=== PATIENT | female | born 1970 | race Hispanic/Latino ===

== ENCOUNTER → 2021-02-21 | Outpatient (CLI) | payer OTHER | END | disposition home or self-care (01) | LOC: OIH 08:19 | PROVIDERS: ATTEND Family Medicine | DX: M17.12 Unilateral primary osteoarthritis, left knee (principal); M47.817 Spondylosis without myelopathy or radiculopathy, lumbosacral region; M85.88 Other specified disorders of bone density and structure, other site; M25.78 Osteophyte, vertebrae | CPT/HCPCS: 72100; 73560 ==

== ENCOUNTER 2021-12-31 15:10 | Emergency (ER) | payer OTHER ==
[~2021-12-31] VITALS: Ht 157.5 cm; Wt 127.0 kg
[2021-12-31 17:39] VITALS: BP 132/83
[2021-12-31] MEDS ORDERED: LIDOP TD (17:56)
[2021-12-31] MEDS ORDERED: CYCL10TA16 PO (17:56)
[2021-12-31] MEDS ORDERED: NAPR-1180 PO (17:56)
[2021-12-31] MEDS ORDERED: ACET-2247 PO (17:56)
[2021-12-31] MEDS ORDERED: HYDROCODONE/ACETAMINOPHEN 10/325 MG TAB PO ONE (18:00)
[2021-12-31] MEDS ORDERED: CYCLOBENZAPRINE HCL 10 MG TABLET PO ONE (18:00)
[2021-12-31] MEDS ORDERED: KETOROLAC 60 MG VIAL (30MG/ML) IM ONE (18:00)
== END 2021-12-31 18:14 | disposition home or self-care (01) ==
LOC: EDH 15:10
DX: M54.50 Low back pain, unspecified (principal); I10 Essential (primary) hypertension; J45.909 Unspecified asthma, uncomplicated; Z79.1 Long term (current) use of non-steroidal anti-inflammatories (NSAID); Z68.43 Body mass index [BMI] 50.0-59.9, adult; E66.01 Morbid (severe) obesity due to excess calories

== ENCOUNTER 2023-02-13 02:15 | Observation (INO) | payer MEDICAID ==
[~2023-02-13] VITALS: Ht 157.5 cm; Wt 142.0 kg
[~2023-02-13 02:15] MED LIST: ACET-2247 PO; CYCL10TA16 PO; LIDOP TD; NAPR-1180 PO
[2023-02-13 02:30] LABS: BASOPHILS % (AUTO) 0.4 % (0.0-5.0); EOSINOPHILS % (AUTO) 3.2 % (0.0-8.0); HEMATOCRIT 42.5 % (36-48); LYMPHOCYTES % (AUTO) 35.7 % (21.0-51.0); MEAN CORPUSCULAR HEMOGLOBIN 31.3 pg (27.0-33.0); MEAN CORPUSCULAR HGB CONC 32.2 g/dL (32.0-36.0); MONOCYTES % (AUTO) 6.7 % (3.0-13.0); NEUTROPHILS % (AUTO) 53.8 % (40.0-77.0); PLATELET COUNT (AUTO) 259 K/uL (130-400); RED BLOOD CELL COUNT(AUTO) 4.38 MIL/uL (4.00-5.50); RED CELL DISTRIBUTION WIDTH 13.2 % (11.0-15.5); WHITE BLOOD COUNT (AUTO) 9.9 K/uL (4.8-10.8)
[2023-02-13] MEDS ORDERED: ASPIRIN 81MG CHEW TAB PO ONE (02:30)
[2023-02-13 02:43] LABS: CREATININE 0.7 mg/dL (0.5-1.5); POTASSIUM 4.2 mmol/L (3.5-5.1)
[2023-02-13 02:47] LABS: ALBUMIN 3.6 g/dL (3.5-5.0); TOTAL PROTEIN, SERUM 7.4 g/dL (6.0-8.3)
[2023-02-13] MEDS ORDERED: LORAZEPAM 2 MG/ML 1 ML VIAL IVP ONE (03:00)
[2023-02-13 03:08] LABS: APPEARANCE,URINE CLEAR (CLEAR); BILIRUBIN,URINE NEGATIVE (NEGATIVE); COLOR,URINE COLORLESS (YELLOW); GLUCOSE, URINE (UA) NEGATIVE (NEGATIVE); KETONES,URINE NEGATIVE (NEGATIVE); LEUKOCYTE ESTERASE ,URINE NEGATIVE Leu/uL (NEGATIVE); NITRATE,URINE NEGATIVE (NEGATIVE); OCCULT BLOOD,URINE NEGATIVE (NEGATIVE); PROTEIN,URINE NEGATIVE (NEGATIVE); UROBILINOGEN,URINE 0.2 mg/dL (0.2-1.0)
[2023-02-13] MEDS ORDERED: TEMAZEPAM 15 MG CAPSULE PO PRN (05:00)
[2023-02-13] MEDS ORDERED: LACTULOSE 20 GM/30 ML UDCUP PO PRN (05:00)
[2023-02-13] MEDS ORDERED: CLONIDINE HCL 0.1 MG TABLET PO PRN ×2 (05:00→12:00)
[2023-02-13] MEDS ORDERED: LABETALOL 20MG SYG IV PRN (05:00)
[2023-02-13] MEDS ORDERED: HYDRALAZINE 20MG/ML VIAL IV PRN (05:00)
[2023-02-13] MEDS ORDERED: ACETAMINOPHEN 325 MG TAB PO PRN (05:00)
[2023-02-13] MEDS ORDERED: DOCUSATE SODIUM 100 MG CAP PO PRN (05:00)
[2023-02-13] MEDS ORDERED: ONDANSETRON 4MG INJ IVP PRN (05:00)
[2023-02-13] MEDS ORDERED: ACETAMINOPHEN 650 MG SUPPOSITORY RC PRN (05:00)
[2023-02-13] MEDS: INSULIN HUMULIN R 100 UNIT/ML 3ML SQ SCH ×4 (07:26→20:38)
[2023-02-13 08:28] VITALS: BP 116/65
[2023-02-13 08:30] VITALS: BP 116/65
[2023-02-13] MEDS: ENOXAPARIN SODIUM 40 MG/0.4 ML SYRINGE SQ SCH (09:41)
[2023-02-13] MEDS ORDERED: TRAM-355 PO (09:43)
[2023-02-13] MEDS ORDERED: LOSA50TA64 PO (09:44)
[2023-02-13] MEDS ORDERED: ATOR20TA65 PO (09:45)
[2023-02-13] MEDS ORDERED: CHOL200059 PO (09:48)
[2023-02-13 11:52] VITALS: BP 138/68
[2023-02-13 13:41] LABS: AMPHET/METH SCREEN,URINE NEGATIVE (NEGATIVE); BARBITURATE SCREEN, URINE NEGATIVE (NEGATIVE); BENZODIAZEPINES SCREEN,URINE NEGATIVE (NEGATIVE); CANNABINOID SCREEN,URINE NEGATIVE (NEGATIVE); COCAINE SCREEN,URINE NEGATIVE (NEGATIVE); OPIATE SCREEN,URINE NEGATIVE (NEGATIVE); PHENCYCLIDINE SCREEN,URINE NEGATIVE (NEGATIVE)
[2023-02-13 16:00] VITALS: BP 134/79
[2023-02-13] MEDS ORDERED: IOHEXOL-350 75 ML VIAL IV ONE (16:38)
[2023-02-13] MEDS: NAPROXEN 500 MG TABLET PO SCH (18:37)
[2023-02-13 20:19] VITALS: BP 143/79
[2023-02-13] MEDS: FAMOTIDINE 20MG TAB PO SCH (20:37)
[2023-02-13] MEDS: TRAMADOL /APAP 37.5MG/325MG TAB PO SCH (20:38)
[2023-02-13] MEDS ORDERED: ATORVASTATIN 40 MG TABLET PO SCH (21:00)
[2023-02-13 23:17] VITALS: BP 118/48
[2023-02-14 03:50] VITALS: BP 123/57
[2023-02-14 05:22] LABS: BASOPHILS % (AUTO) 0.3 % (0.0-5.0); EOSINOPHILS % (AUTO) 3.2 % (0.0-8.0); HEMATOCRIT 41.6 % (36-48); LYMPHOCYTES % (AUTO) 30.1 % (21.0-51.0); MEAN CORPUSCULAR HGB CONC 31.5 g/dL (32.0-36.0); MEAN CORPUSCULAR VOLUME 98.6 fL (79-99); MONOCYTES % (AUTO) 7.8 % (3.0-13.0); NEUTROPHILS % (AUTO) 58.3 % (40.0-77.0); PLATELET COUNT (AUTO) 244 K/uL (130-400); RED BLOOD CELL COUNT(AUTO) 4.22 MIL/uL (4.00-5.50); RED CELL DISTRIBUTION WIDTH 13.2 % (11.0-15.5); WHITE BLOOD COUNT (AUTO) 7.2 K/uL (4.8-10.8)
[2023-02-14 05:51] LABS: CREATININE 0.6 mg/dL (0.5-1.5); MAGNESIUM 2.1 mg/dL (1.80-2.40); PHOSPHORUS 5.7 mg/dL (2.5-4.9); POTASSIUM 4.2 mmol/L (3.5-5.1)
[2023-02-14] MEDS: INSULIN HUMULIN R 100 UNIT/ML 3ML SQ SCH ×3 (06:48→16:30)
[2023-02-14] MEDS ORDERED: (Cholecalciferol (Vitamin D3) (Vitamin D3) 50 MCG) PO SCH (09:00)
[2023-02-14] MEDS ORDERED: ASPIRIN 81MG CHEW TAB PO SCH (09:00)
[2023-02-14] MEDS ORDERED: LOSARTAN 50 MG TABLET PO SCH (09:00)
[2023-02-14] MEDS ORDERED: ATORVASTATIN 20 MG TABLET PO SCH (09:00)
[2023-02-14 09:17] VITALS: BP 156/74
[2023-02-14] MEDS: ENOXAPARIN SODIUM 40 MG/0.4 ML SYRINGE SQ SCH (09:47)
[2023-02-14] MEDS: TRAMADOL /APAP 37.5MG/325MG TAB PO SCH (09:47)
[2023-02-14] MEDS: NAPROXEN 500 MG TABLET PO SCH (09:48)
[2023-02-14] MEDS: FAMOTIDINE 20MG TAB PO SCH (09:48)
[2023-02-14 11:34] VITALS: BP 127/60
[2023-02-14 16:46] VITALS: BP 122/70
== END 2023-02-14 17:30 | disposition home or self-care (01) ==
LOC: EDH 02:15 → EDHIP 02:16 → 3CH 08:30
PROVIDERS: ADMIT Internal Medicine Critical Care Medicine; ATTEND Internal Medicine Critical Care Medicine
DX: R07.89 Other chest pain (principal); I16.0 Hypertensive urgency; I10 Essential (primary) hypertension; E78.5 Hyperlipidemia, unspecified; E66.01 Morbid (severe) obesity due to excess calories; M19.90 Unspecified osteoarthritis, unspecified site; F41.8 Other specified anxiety disorders; E78.00 Pure hypercholesterolemia, unspecified; F17.200 Nicotine dependence, unspecified, uncomplicated; Z79.899 Other long term (current) drug therapy
CPT/HCPCS: 96374; 96372 ×2; 99285; 83036; 84443; 82550 ×3; 83874 ×3; 84484 ×6; 80053; 83880; 80305; 85025 ×2; 85378; 82948 ×7; 84439; 84481; 81003; 36415 ×2; 71045; 71270; 93005; 83735; 84100; 80061; 80048; 97161; 97116; G0378 ×35; J2060; J1650 ×2; Q9967

== ENCOUNTER 2023-04-29 14:43 | Emergency (ER) | payer MEDICAID ==
[~2023-04-29] VITALS: Ht 157.5 cm; Wt 131.5 kg
[~2023-04-29 14:43] MED LIST changes: -ACET-2247 PO; +ATOR20TA65 PO; +CHOL200059 PO; -CYCL10TA16 PO; -LIDOP TD; +LOSA50TA64 PO; +TRAM-355 PO
[2023-04-29 15:48] LABS: APPEARANCE,URINE CLEAR (CLEAR); BILIRUBIN,URINE NEGATIVE (NEGATIVE); COLOR,URINE COLORLESS (YELLOW); GLUCOSE, URINE (UA) NEGATIVE (NEGATIVE); KETONES,URINE NEGATIVE (NEGATIVE); LEUKOCYTE ESTERASE ,URINE NEGATIVE Leu/uL (NEGATIVE); NITRATE,URINE NEGATIVE (NEGATIVE); OCCULT BLOOD,URINE NEGATIVE (NEGATIVE); PROTEIN,URINE NEGATIVE (NEGATIVE); UROBILINOGEN,URINE 0.2 mg/dL (0.2-1.0)
[2023-04-29 15:57] LABS: BASOPHILS % (AUTO) 0.4 % (0.0-5.0); EOSINOPHILS % (AUTO) 1.9 % (0.0-8.0); HEMATOCRIT 44.1 % (36-48); LYMPHOCYTES % (AUTO) 28.2 % (21.0-51.0); MEAN CORPUSCULAR HEMOGLOBIN 30.5 pg (27.0-33.0); MEAN CORPUSCULAR HGB CONC 32.2 g/dL (32.0-36.0); MEAN CORPUSCULAR VOLUME 94.6 fL (79-99); MONOCYTES % (AUTO) 7.2 % (3.0-13.0); NEUTROPHILS % (AUTO) 61.9 % (40.0-77.0); PLATELET COUNT (AUTO) 272 K/uL (130-400); RED BLOOD CELL COUNT(AUTO) 4.66 MIL/uL (4.00-5.50); RED CELL DISTRIBUTION WIDTH 14.1 % (11.0-15.5); WHITE BLOOD COUNT (AUTO) 9.7 K/uL (4.8-10.8)
[2023-04-29 16:04] LABS: CREATININE 0.6 mg/dL (0.5-1.5); POTASSIUM 4.4 mmol/L (3.5-5.1)
[2023-04-29 16:09] LABS: ALBUMIN 3.6 g/dL (3.5-5.0); TOTAL PROTEIN, SERUM 6.9 g/dL (6.0-8.3)
[2023-04-29] MEDS ORDERED: AMOX500C2 PO (17:44)
[2023-04-29] MEDS ORDERED: CEFTRIAXONE 1G VIAL IVPB ONE (18:00)
[2023-04-29 18:14] VITALS: BP 129/87
== END 2023-04-29 18:47 | disposition home or self-care (01) ==
LOC: EDH 14:43
DX: J02.0 Streptococcal pharyngitis (principal); F41.9 Anxiety disorder, unspecified; M19.90 Unspecified osteoarthritis, unspecified site; E78.00 Pure hypercholesterolemia, unspecified; E66.01 Morbid (severe) obesity due to excess calories; Z68.43 Body mass index [BMI] 50.0-59.9, adult; Z20.822 Contact with and (suspected) exposure to COVID-19
CPT/HCPCS: 99285; 96365; 71045; 87635; 84484; 80053; 85025; 87880; 87804 ×2; 81003; 36415; 93005; C9803; J0696

== ENCOUNTER 2024-08-05 04:02 | Emergency (ER) | payer MEDICARE, MEDICAID ==
[~2024-08-05 04:02] MED LIST changes: +AMOX500C2 PO; -TRAM-355 PO; +TRAM-543 PO
[2024-08-05 04:32] LABS: BASOPHILS # (AUTO) 0.04 K/uL (0.00-0.20); BASOPHILS % (AUTO) 0.3 % (0.0-5.0); EOSINOPHILS # (AUTO) 0.35 K/uL (0.00-0.70); EOSINOPHILS % (AUTO) 2.8 % (0.0-8.0); HEMATOCRIT 41.3 % (36-48); IMMATURE GRANULOCYTE ABSOLUTE 0.04 K/uL (0-1); LYMPHOCYTES % (AUTO) 24.5 % (21.0-51.0); MEAN CORPUSCULAR HEMOGLOBIN 30.8 pg (27.0-33.0); MEAN CORPUSCULAR HGB CONC 32.7 g/dL (32.0-36.0); MEAN CORPUSCULAR VOLUME 94.1 fL (79-99); MONOCYTES # (AUTO) 0.8 K/uL (0.1-1.0); MONOCYTES % (AUTO) 6.1 % (3.0-13.0); NEUTROPHILS # (AUTO) 8.2 K/uL (1.8-7.7); PLATELET COUNT (AUTO) 235 K/uL (130-400); RED BLOOD CELL COUNT(AUTO) 4.39 MIL/uL (4.00-5.50); WHITE BLOOD COUNT (AUTO) 12.4 K/uL (4.8-10.8)
[2024-08-05 04:42] LABS: CREATININE 0.7 mg/dL (0.5-1.0); POTASSIUM 3.8 mmol/L (3.5-5.1)
[2024-08-05] MEDS: ketOROlac 15MG/ML VIAL (15MG/ML) IV ONE (04:45)
[2024-08-05 04:46] LABS: ALBUMIN 3.1 g/dL (3.5-5.0); BILIRUBIN,TOTAL 0.3 mg/dL (0.2-1.0); TOTAL PROTEIN, SERUM 6.9 g/dL (6.0-8.3)
[2024-08-05] MEDS: LACTATED RINGERS 1000ML 1,000 ML IV ONE (04:46)
[2024-08-05] MEDS: morPHINE 4 MG SYG IVP ONE (04:46)
[2024-08-05 04:53] VITALS: O2SAT 98
[2024-08-05] MEDS: DIPHENHYDRAMINE HCL 50 MG CAPSULE PO ONE ×2 (05:08→05:34)
[2024-08-05 06:11] VITALS: BP 116/60; PULSE 77; RESP 16; TEMP 98.3
== END 2024-08-05 06:18 | disposition home or self-care (01) ==
LOC: EDH 04:02
DX: M48.061 Spinal stenosis, lumbar region without neurogenic claudication (principal); F41.9 Anxiety disorder, unspecified; E78.00 Pure hypercholesterolemia, unspecified; I10 Essential (primary) hypertension; M19.90 Unspecified osteoarthritis, unspecified site; E66.01 Morbid (severe) obesity due to excess calories; Z98.890 Other specified postprocedural states; Z68.30 Body mass index [BMI] 30.0-30.9, adult; Z79.2 Long term (current) use of antibiotics; Z79.899 Other long term (current) drug therapy
CPT/HCPCS: 99285; 72131; 96374; 96361; 96375; 80053; 83690; 85025; 36415; 72128; Q0163; J7120; J2270; J1885